=== PATIENT | male | born 1935 | race Asian ===

== ENCOUNTER 2018-04-18 09:32 | Day surgery (SDC) | payer OTHER ==
[2018-04-14 18:11] VITALS: BMI 25.0
--- NOTE | 2018-04-17 12:50 | PREOPHP ---
DATE OF ADMISSION: 04/18/2018 HISTORY OF PRESENT ILLNESS: This 83-year-old patient is admitted for elective cataract surgery of th e right eye. The patient has had decreased vision in both eyes over the past 2 years with no prior h istory of eye disease or injury. PAST MEDICAL HISTORY: The patient's systemic history is positive for hypertension. MEDICATIONS: Currently using amlodipine. ALLERGIES: THERE ARE NO KNOWN ALLERGIES. PHYSICAL EXAMINATION: The visual acuity best corrected is 20/100 in the right eye and 20/200 in the left eye. Slit lamp examination reveals advanced nuclear sclerotic cataracts in both eyes. Applanat ion tonometry is 16 mmHg. Examination of the retina is within normal limits. 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 PLAN: Cataract extraction with lens implant, right eye. The risks and alternatives to the surgery h ave been discussed with the patient as well as the ultrasonic power required to remove an advanced nu clear sclerotic cataract which may lead to some complications during surgery. The patient understand s this and agrees to proceed with surgery. Dictated By: NINI AMOR/ERICH Conf#: [id number] DID#: [id number]
[2018-04-18] VITALS (10 sets, daily range): BP systolic 140–158; BP diastolic 65–71; PULSE 54–58; RESP 12–18; Ht 170.2 cm; Wt 68.1 kg
[~2018-04-18] VITALS: Ht 170.2 cm; Wt 68.1 kg
[~2018-04-18 09:32] MED LIST: AMLO-147 PO; CYCLOPENTOLATE/PHENYLEPH 2 ML OPH OPER SCH; DICLOFENAC 0.1% 2.5 ML OPH OPER SCH; METO-429 PO; MOXIFLOXACIN 0.5% 3 ML OPH OPER SCH; SOD CHLORIDE 0.9% 1,000 ML IV SCH; TROPICAMIDE 1% 15 ML OPH OPER SCH
[2018-04-18] MEDS ORDERED: ATOR40TA68 PO (10:09)
[2018-04-18] MEDS ORDERED: AMLO5TAB4 PO (10:09)
[2018-04-18] MEDS ORDERED: METO-429 PO (10:10)
[2018-04-18] MEDS ORDERED: hydrALAzine 20 MG INJ IV PRN (11:00)
[2018-04-18] MEDS ORDERED: ONDANSETRON 4 MG INJ IV PRN (11:00)
[2018-04-18] MEDS ORDERED: LABETALOL HCL 20MG INJ IV PRN (11:00)
[2018-04-18] MEDS ORDERED: OXYCODONE/ACETAMINOPHEN (5/325) TAB PO PRN (11:00)
[2018-04-18] MEDS ORDERED: EPHEDrine SULFATE 50 MG/5 ML SYG IV PRN (11:00)
[2018-04-18] MEDS ORDERED: HYDROmorphONE 1 MG/5 ML IV SYRINGE IV PRN (11:00)
[2018-04-18] MEDS ORDERED: METOCLOPRAMIDE 10 MG INJ IV PRN (11:00)
[2018-04-18] MEDS ORDERED: FENTAnyl 50 MCG/ML VIAL IV PRN (11:00)
--- NOTE | 2018-04-18 11:00 | PREAC ---
Date/Time of Note Date/Time of Note DATE: 04/18/18 TIME: 10:58 Anesthesia Eval and Record Evaluation Time Pre-Procedure Interview DATE: 04/18/18 TIME: 10:58 Age 83 Sex male NPO: 8 hrs Preoperative diagnosis Right Eye Cataract Planned procedure Right Eye Cataract Extraction with IOL implant Past Medical History Past Medical History: Includes Cardio: HTN, Dyslipidemia Surgery & Anesthesia Issues No known issue Meds Anticoagulation: No Beta Michelle within 24 hr: Yes Reason Beta Michelle not given: Pt. not on B-Michelle Reported Medications Metoprolol Tartrate* (Lopressor*) 50 Mg Tab, 50 MG PO DAILY, #60 TAB 04/18/18 Atorvastatin* (Atorvastatin*) 40 Mg Tablet, 40 MG PO QHS, #30 TAB 04/18/18 Amlodipine Besylate* (Norvasc*) 5 Mg Tablet, 5 MG PO DAILY, TAB 04/18/18 Discontinued Reported Medications Metoprolol Tartrate* (Lopressor*) 50 Mg Tab, 50 MG PO 0D, TAB 04/19/14 Amlodipine Besylate* (Amlodipine Besylate*) 10 Mg Tablet, 5 MG PO DAILY, TAB 04/19/14 Current Medications Diclofenac Sodium (Voltaren 0.1%) 1 drop Q5 MIN X 3 OPER Last administered on 04/18/18at 10:09; Admin Dose 1 DROP; Start 04/18/18 at 09:00 Tropicamide (Mydriacyl 1%) 1 drop Q5 MIN X3 OPER Last administered on 04/18/18at 10:09; Admin Dose 1 DROP; Start 04/18/18 at 09:00 Moxifloxacin HCl (Vigamox) 1 drop Q5 MIN X 3 OPER Last administered on 04/18/18at 10:10; Admin Dose 1 DROP; Start 04/18/18 at 09:00 Cyclopentolate/ Phenylephrine (Cyclomydril Oph 2 ml) 1 drop Q5 MIN X 3 OPER L ast administered on 04/18/18 10:09; Admin Dose 1 DROP; Start 04/18/18 at 09:00 Sodium Chloride 1,000 ml @ 25 mls/hr Q24H IV ; Start 04/18/18 at 09:00 Meds reviewed: Yes Allergies Coded Allergies: No Known Drug Allergies (Verified Allergy, Unknown, 04/18/18) Allergies Reviewed: Yes Labs/Studies Labs Reviewed: Reviewed by anesthesiologist test: N/A Studies: ECG (n/a), CXR (n/a) Pre-procedure Exam Last vitals Vital Signs Date Temp Pulse Resp B/P (MAP) Pulse Ox O2 O2 Flow FiO2 Time Delivery Rate 04/18/18 96.6 57 18 158/70 96 Room Air 10:26 (99) Airway: Adequate mouth opening, Adequate thyromental dist Mallampati: Mallampati II Teeth: Normal Lung: Normal Heart: Normal ASA Physical Status ASA physical status: 3 Emergency: None Planned Anesthetic General/MAC: MAC Planned Pain Management Parenteral pain med Pre-operative Attestations Prior to commencing anesthesia and surgery, the patient was re-evaluated, there was verification of: *The patient's identity *The results of appropriate recent lab work and preoperative vital signs *The above evaluation not changing prior to induction *Anesthetic plan, risk benefits, alternative and complications discussed with patient/family; questions answered; patient/family understands, accepts and wishes to proceed. KEVIN VERAS MD Apr 18, 2018 11:00
[2018-04-18] MEDS ORDERED: CEFAZOLIN 1 GM INJ ONE (11:36)
[2018-04-18] MEDS ORDERED: TETRACAINE 0.5% 4 ML OPH ONE (11:36)
[2018-04-18] MEDS ORDERED: LIDOCAINE 4% (MPF) 5 ML INJ ONE (11:36)
[2018-04-18] MEDS ORDERED: CARBACHOL 0.01% 1.5 ML OPH INJ ONE (11:36)
[2018-04-18] MEDS ORDERED: PROPOFOL 20 ML ONE (12:11)
[2018-04-18] MEDS ORDERED: ONDANSETRON 4 MG INJ ONE (12:11)
[2018-04-18] MEDS ORDERED: DEXAMETHASONE 4 MG/ML 1 ML INJ ONE (12:11)
--- NOTE | 2018-04-18 12:16 | SIPON ---
Date/Time of Note Date/Time of Note DATE: 04/18/18 TIME: 12:15 Operative Report Preoperative Diagnosis nuclear sclerotic cataract od Postoperative Diagnosis same Operation/Procedure Performed cataract extraction with lens implantation od Surgeon nini brown assistant activities director none Anesthesia: MAC Estimated blood loss: none Transfusion Required none Specimen none Grafts/Implants posterior chamber lens implant Complications none NINI BROWN MD Apr 18, 2018 12:16
--- NOTE | 2018-04-18 12:18 | PAC ---
Date/Time of Note Date/Time of Note DATE: 04/18/18 TIME: 12:18 Post-Anesthesia Notes Post-Anesthesia Note Last documented vital signs Vital Signs Date Temp Pulse Resp B/P (MAP) Pulse Ox O2 O2 Flow FiO2 Time Delivery Rate 04/18/18 96.6 57 18 158/70 96 Room Air 12:16 (99) Activity: WNL Respiratory function: WNL Cardiovascular function: WNL Mental status: Baseline Pain reasonably controlled: Yes Hydration appropriate: Yes Nausea/Vomiting absent: Yes KEVIN VERAS MD Apr 18, 2018 12:18
--- NOTE | 2018-04-18 18:20 | OPR ---
DATE OF OPERATION: 04/18/2018 PREOPERATIVE DIAGNOSIS: Nuclear sclerotic cataract, right eye. POSTOPERATIVE DIAGNOSIS: Nuclear sclerotic cataract, right eye. PROCEDURE: Cataract extraction with lens implant, right eye. SURGEON: Nini Davis MD ANESTHESIA: MAC. ANESTHESIOLOGIST: [place] Live MD PROCEDURE: The patient was brought to the operating room and placed on the table with an IV in place and the patient attached to an chandelier maker. Oxygen was given via face mask. After some intravenous sedation was administered, local anesthesia was given using Xylocaine 2% with epinephrine, mixed with Marcaine 0.5%. This was given in a lid block and retrobulbar injection. The p atient was then prepped and draped in the usual sterile manner. A wire lid speculum was inserted between the lids of the right eye. A Superblade was used to enter th e anterior chamber at the corneoscleral limbus at the 10:30 o'clock position. A separate incision was made using a 3.0-mm keratome which entered the corneoscleral junction at the 12 o'clock position. Th rough this 3-mm opening, an irrigating cystotome was introduced into the anterior chamber. The chambe r was filled with Viscoat and an anterior capsulotomy was performed. Balanced salt solution was then used for hydrodissection of the lens. A phacoemulsification handpiece was then brought into the fiel d and introduced into the anterior chamber. Due to the significant amount of nuclear sclerotic catara ct formation, phacoemulsification required a higher level of ultrasound power to remove the cataract. The lens nucleus was emulsified using a deep groove and cracking the nucleus into quadrants. Follow ing this, each quadrant was aspirated and emulsified at the pupillary margin. After this was completed, the irrigation/aspiration handpiece was brought to the field, introduced in to the posterior chamber, and the lens cortical material was removed. When this was completed, additi onal Viscoat was injected into the anterior and posterior chambers. The 3-mm opening had its internal lips enlarged, and then the posterior chamber intraocular lens chicho uring 20.5 diopters ([employer] Model LI61AO) was then injected into the posterior c hamber using the lens injector system. After the leading haptic was introduced into the capsular bag and the lens optic was present in the center of the eye, the injector was removed and the trailing rich ptic was grasped with non-toothed forceps and introduced into the capsular fold superiorly. A Sinskey hook was then used to rotate the intraocular lens so that the lips were oriented in the horizontal m eridian. One 10-0 nylon suture was placed across the wound. Prior to tying, the irrigation/aspiration handpiece was reintroduced into the anterior chamber to rem ove the Viscoat. Miochol was instilled to constrict the pupil, and then the 10-0 nylon suture was tie d. The ends were cut short and then the knot was buried. Then, 0.5 mL of dexamethasone and 0.5 mL of Ancef were injected into the sub-Tenon space in the infer ior fornix. Ciloxan drops were then placed on the surface of the eye. The speculum was removed and a patch was applied. The patient then left the operating room in satisfactory condition. Dictated By: NINI AMOR/ERICH Conf#: [id number] DID#: [id number]
== END 2018-04-18 13:26 | disposition home or self-care (01) ==
LOC: SDS 09:32
PROVIDERS: ATTEND Ophthalmology
DX: H25.11 Age-related nuclear cataract, right eye (principal); I10 Essential (primary) hypertension; E78.5 Hyperlipidemia, unspecified
CPT/HCPCS: 66984; J0690; J1100; J2405; V2632; Z7512; Z7610